=== PATIENT | male | born 1965 | race Hispanic/Latino ===

== ENCOUNTER 2020-10-20 22:35 | Emergency (ER) | payer BC, OTHER ==
[2020-10-21 01:22] LABS: Basophils % 0.6 % (0-1.3); Hematocrit 43.6 % (39.6-49.0); Lymphocytes % 30.4 % (15.3-44.8); MPV 9.4 fL (7.6-11.3); RBC Red Blood Cell Count 4.94 M/uL (4.33-5.43)
[2020-10-21 01:27] LABS: Protime INR 1.03
[2020-10-21 01:41] LABS: ALT/SGPT 35 U/L (12-78); Albumin 3.7 g/dL (3.4-5.0); Alkaline Phosphatase 111 U/L (45-117); BUN Blood Urea Nitrogen 16 mg/dL (7-18); Bicarbonate 26 mmol/L (21-32); Bilirubin Direct < 0.1 mg/dL (0-0.2); Bilirubin Total 0.4 mg/dL (0.2-1.0); Glucose Level 118 mg/dL (74-106); NT PRO-BNP 7 pg/mL (<125); Protein, Total 7.3 g/dL (6.4-8.2); Sodium Level 142 mmol/L (136-145); Troponin (Emerg Dept Use Only) < 0.02 ng/mL (0.0-0.045)
[2020-10-21 01:42] LABS: AST/SGOT 15 U/L (15-37); Magnesium 2.4 mg/dL (1.8-2.4); Potassium 3.6 mmol/L (3.5-5.1)
[2020-10-21] MEDS ORDERED: NA CHLORIDE 0.9% 1,000 ML ONE (01:44)
--- NOTE | 2020-10-21 03:37 | EDPHYS ---
Physician Documentation [facility] Name: Hardy Holm Age: 55 yrs Sex: Male : 1965 Arrival Date: 10/20/2020 Time: 22:42 Bed 16 Private MD: ED Physician Roderick Diggs HPI: 10/21 22:35 This 55 yrs old Male presents to ER via Ambulatory with complaints of tw4 Breathing Difficulty, Blood Pressure Problem, LEGS HEAVY. 22:35 The patient has shortness of breath at rest. Onset: The symptoms/episode began/occurred tw4 just prior to arrival, today. Duration: The symptoms are intermittent. The patient's shortness of breath has no apparent modifying factors. The patient has not experienced similar symptoms in the past. 22:35 Associated signs and symptoms: The patient has no apparent associated signs or symptoms.tw4 Historical: - Allergies: 10/20 23:01 No Known Allergies; bb - Home Meds: 23:01 None [Active]; bb - PMHx: 23:01 None; bb - PSHx: 23:01 None; bb - Immunization history:: Adult Immunizations up to date. - Social history:: Smoking status: Patient denies any tobacco usage or history of. ROS: 10/21 22:35 Constitutional: Negative for fever, chills, and weight loss, Eyes: Negative for injury, tw4 pain, redness, and discharge, Respiratory: Negative for shortness of breath, cough, wheezing, and pleuritic chest pain, Abdomen/GI: Negative for abdominal pain, nausea, vomiting, diarrhea, and constipation, Back: Negative for injury and pain, MS/Extremity: Negative for injury and deformity, Skin: Negative for injury, rash, and discoloration, Neuro: Negative for headache, weakness, numbness, tingling, and seizure. Exam: 22:35 Constitutional: This is a well developed, well nourished patient who is awake, alert, tw4 and in no acute distress. Head/Face: Normocephalic, atraumatic. Chest/axilla: Normal chest wall appearance and motion. Nontender with no deformity. No lesions are appreciated. Respiratory: Lungs have equal breath sounds bilaterally, clear to auscultation and percussion. No rales, rhonchi or wheezes noted. No increased work of breathing, no retractions or nasal flaring. Abdomen/GI: Soft, non-tender, with normal bowel sounds. No distension or tympany. No guarding or rebound. No evidence of tenderness throughout. Back: No spinal tenderness. No costovertebral tenderness. Full range of motion. Skin: Warm, dry with normal turgor. Normal color with no rashes, no lesions, and no evidence of cellulitis. MS/ Extremity: Pulses equal, no cyanosis. Neurovascular intact. Full, normal range of motion. Neuro: Awake and alert, GCS 15, oriented to person, place, time, and situation. Cranial nerves II-XII grossly intact. Motor strength 5/5 in all extremities. Sensory grossly intact. Cerebellar exam normal. Normal gait. Vital Signs: 10/20 22:59 BP 124 / 79; Pulse 94; Resp 16 S; Temp 98.5(O); Pulse Ox 99% on R/A; Weight 77.11 kg bb (R); Height 5 ft. 5 in. (165.10 cm) (R); Pain 0/10; 10/21 01:00 BP 121 / 80; Pulse 76; Resp 18; Pulse Ox 98% on R/A; lp1 02:17 BP 122 / 77; Pulse 79; Resp 18; Pulse Ox 98% on R/A; lp1 03:47 BP 115 / 74; Pulse 95; Resp 16 S; Pulse Ox 99% on R/A; Pain 0/10; bb 10/20 22:59 Body Mass Index 28.29 (77.11 kg, 165.10 cm) bb MDM: 00:00 Patient medically screened. tw4 22:35 Antibiotic administration: Not indicated. Data reviewed: vital signs, nurses notes. tw4 Data reviewed: lab test result(s), CBC, electrolytes. Data interpreted: Pulse oximetry: Interpretation: normal. Test interpretation: by ED physician or midlevel provider: ECG. Counseling: I had a detailed discussion with the patient and/or guardian regarding: the historical points, exam findings, and any diagnostic results supporting the discharge/admit diagnosis. Special discussion: I discussed with the patient/guardian in detail that at this point there is no indication for admission to the hospital. It is understood, however, that if the symptoms persist or worsen the patient needs to return immediately for re-evaluation. 10/21 00:36 Order name: Basic Metabolic Panel lp1 10/21 00:36 Order name: CBC with Diff lp1 10/21 00:36 Order name: LFT's lp1 10/21 00:36 Order name: Magnesium lp1 10/21 00:36 Order name: NT PRO-BNP lp1 10/21 00:36 Order name: PT-INR lp1 10/21 00:36 Order name: Troponin (emerg Dept Use Only) lp1 10/21 00:36 Order name: XRAY Chest (1 view) lp1 10/21 00:36 Order name: EKG; Complete Time: 00:36 lp1 10/21 00:36 Order name: Cardiac monitoring; Complete Time: 00:36 lp1 10/21 00:36 Order name: EKG - Nurse/Tech; Complete Time: 00:36 lp1 10/21 00:36 Order name: Basic Metabolic Panel EDMS 10/21 00:36 Order name: CBC with Automated Diff EDMS 10/21 00:36 Order name: IV Saline Lock; Complete Time: 01:11 lp1 10/21 00:36 Order name: Labs collected and sent; Complete Time: 01:11 lp1 10/21 00:36 Order name: O2 Per Protocol; Complete Time: 00:36 lp1 10/21 00:36 Order name: O2 Sat Monitoring; Complete Time: 00:36 lp1 Administered Medications: 01:27 Drug: NS 0.9% 1000 ml Route: IV; Rate: 1 bolus; Site: left antecubital; lp1 02:30 Follow up: IV Status: Completed infusion; IV Intake: 1000ml bb Disposition: 10/21/20 03:36 Discharged to Home. Impression: Weakness, Dyspnea. - Condition is Stable. - Discharge Instructions: Weakness, Shortness of Breath, Ghjx-ev-Hkli, Fatigue. - Medication Reconciliation Form, Thank You Letter, Antibiotic Education, Prescription Opioid Use form. - Follow up: Private Physician; When: Upon discharge from the Emergency Department; Reason: Recheck today's complaints, Continuance of care, Re-evaluation by your physician. - Problem is new. - Symptoms have improved. Signatures: Dispatcher [employer] EDMO Yas Savage RN RN bb Domitila Lubin RN RN lp1 Roderick Diggs MD MD tw4 Corrections: (The following items were deleted from the chart) 03:48 03:36 10/21/2020 03:36 Discharged to Home. Impression: Weakness; Dyspnea. Condition is bb Stable. Forms are Medication Reconciliation Form, Thank You Letter, Antibiotic Education, Prescription Opioid Use. Follow up: Private Physician; When: Upon discharge from the Emergency Department; Reason: Recheck today's complaints, Continuance of care, Re-evaluation by your physician. Problem is new. Symptoms have improved. tw4
--- NOTE | 2020-10-21 03:37 | ER ---
Nurse's Notes [facility] Name: Hardy Holm Age: 55 yrs Sex: Male : 1965 Arrival Date: 10/20/2020 Time: 22:42 Bed 16 Private MD: Diagnosis: Weakness;Dyspnea Presentation: 10/20 22:59 Chief complaint: Patient states: pt states tonight he felt like "my blood pressure went bb down" his legs are feeling heavy he felt SOB. Coronavirus screen: At this time, the client does not indicate any symptoms associated with coronavirus-19. Ebola Screen: No symptoms or risks identified at this time. Initial Sepsis Screen: Does the patient meet any 2 criteria? No. Patient's initial sepsis screen is negative. Does the patient have a suspected source of infection? No. Patient's initial sepsis screen is negative. Risk Assessment: Do you want to hurt yourself or someone else? Patient reports no desire to harm self or others. Onset of symptoms was October 20, 2020. 22:59 Method Of Arrival: Ambulatory bb 22:59 Acuity: KIERRA 3 bb Triage Assessment: 23:01 General: Appears in no apparent distress. Behavior is calm, cooperative. Pain: Denies bb pain. Neuro: Level of Consciousness is awake, alert, obeys commands, Oriented to person, place, time, situation. Cardiovascular: Capillary refill < 3 seconds Patient's skin is warm and dry. Respiratory: Reports shortness of breath Airway is patent Respiratory effort is even, unlabored, Respiratory pattern is regular, Onset: The symptoms/episode began/occurred suddenly, the patient reports symptoms have resolved. GI: No signs and/or symptoms were reported involving the gastrointestinal system. Derm: Skin is dry, Skin is normal, Skin temperature is warm. Musculoskeletal: Circulation, motion, and sensation intact. Historical: - Allergies: 23:01 No Known Allergies; bb - Home Meds: 23:01 None [Active]; bb - PMHx: 23:01 None; bb - PSHx: 23:01 None; bb - Immunization history:: Adult Immunizations up to date. - Social history:: Smoking status: Patient denies any tobacco usage or history of. Screenin/09 00:45 Abuse screen: Denies threats or abuse. Denies injuries from another. Nutritional lp1 screening: No deficits noted. Tuberculosis screening: No symptoms or risk factors identified. Fall Risk None identified. Assessment: 00:45 General: Appears in no apparent distress. Behavior is calm, cooperative, appropriate lp1 for age. Pain: Denies pain. Neuro: Level of Consciousness is awake, alert, obeys commands, Oriented to person, place, time, situation, Gait is steady. Cardiovascular: Patient's skin is warm and dry. Rhythm is sinus rhythm. Respiratory: Respiratory effort is even, unlabored, Breath sounds are clear bilaterally. GI: No signs and/or symptoms were reported involving the gastrointestinal system. : No signs and/or symptoms were reported regarding the genitourinary system. EENT: No signs and/or symptoms were reported regarding the EENT system. Derm: Skin is intact, Skin is dry, Skin is normal. Musculoskeletal: No deficits noted. 02:00 Reassessment: Patient appears in no apparent distress at this time. Patient is alert, lp1 oriented x 3, equal unlabored respirations, skin warm/dry/pink. 03:47 Reassessment: Patient is alert, oriented x 3, equal unlabored respirations, skin bb warm/dry/pink. pt verbalized understanding of and agrees to plan of care discharge instructions given pt ambulated with steady gait to exit Patient states feeling better. Vital Signs: 10/20 22:59 BP 124 / 79; Pulse 94; Resp 16 S; Temp 98.5(O); Pulse Ox 99% on R/A; Weight 77.11 kg bb (R); Height 5 ft. 5 in. (165.10 cm) (R); Pain 0/10; 10/21 01:00 BP 121 / 80; Pulse 76; Resp 18; Pulse Ox 98% on R/A; lp1 02:17 BP 122 / 77; Pulse 79; Resp 18; Pulse Ox 98% on R/A; lp1 03:47 BP 115 / 74; Pulse 95; Resp 16 S; Pulse Ox 99% on R/A; Pain 0/10; bb 10/20 22:59 Body Mass Index 28.29 (77.11 kg, 165.10 cm) bb ED Course: 10/20 22:42 Patient arrived in ED. es 23:00 Triage completed. bb 23:01 Arm band placed on Patient placed in waiting room, Patient notified of wait time. bb 23:32 Roderick Diggs MD is Attending Physician. tw4 10/21 00:04 Domitila Lubin, RN is Primary Nurse. lp1 00:57 XRAY Chest (1 view) In Process Unspecified. EDMS 01:00 Patient has correct armband on for positive identification. Placed in gown. Bed in low lp1 position. Call light in reach. hand bootmaker on. Pulse ox on. NIBP on. 01:05 Inserted saline lock: 20 gauge in left antecubital area, using aseptic technique. Blood lp1 collected. 03:48 No provider procedures requiring assistance completed. IV discontinued, intact, bb bleeding controlled, No redness/swelling at site. Pressure dressing applied. Administered Medications: 01:27 Drug: NS 0.9% 1000 ml Route: IV; Rate: 1 bolus; Site: left antecubital; lp1 02:30 Follow up: IV Status: Completed infusion; IV Intake: 1000ml bb Intake: 02:30 IV: 1000ml; Total: 1000ml. bb Outcome: 03:36 Discharge ordered by . tw4 03:48 Discharged to home ambulatory. bb 03:48 Condition: stable 03:48 Discharge instructions given to patient, Instructed on discharge instructions, follow up and referral plans. Demonstrated understanding of instructions, follow-up care. 03:48 Patient left the ED. bb Signatures: Dispatcher [employer] Helen Oviedo Brenda, RN RN bb Domitila Lubin, RN RN lp1 Roderick Diggs MD MD tw4
[2020-10-21 05:37] VITALS: TEMP 98.5
[2020-10-21 05:42] VITALS: BP 115/74; O2SAT 99
--- NOTE | 2020-10-21 08:58 | RAD REPORT ---
EXAM DESCRIPTION: Jann Single View10/21/2020 12:57 am CLINICAL HISTORY: Shortness breath COMPARISON: none FINDINGS: The lungs appear clear of acute infiltrate. The heart is normal size IMPRESSION: No acute abnormalities displayed
--- NOTE | 2020-10-21 12:12 | EKG ---
Test Date: 2020-10-21 Test Time: 00:13:08 Health And Safety Trainer: HASEEB MEASUREMENT RESULTS: Intervals: Rate: 79 TX: 150 QRSD: 80 QT: 368 QTc: 421 [place]: P: 49 TX: 150 QRS: 19 T: 12 INTERPRETIVE STATEMENTS: Normal sinus rhythm Normal ECG Compared to ECG 12/23/2003 13:43:00 Sinus tachycardia no longer present Electronically Signed On 10-21-20 12:11:40 CDT by Jay Puckett
== END 2020-10-21 03:48 | disposition home or self-care (01) ==
LOC: ER 22:35
DX: R53.1 Weakness (principal); R06.00 Dyspnea, unspecified
CPT/HCPCS: 93005; 85025; 80048; 36415; 83735; 85610; 80076; 84484; 83880; 71045; J7030; 96360; 99284